=== PATIENT | female | born 1985 | race African-American/Black ===

== ENCOUNTER 2019-04-18 23:48 | Emergency (ER) | payer OTHER ==
[~2019-04-18] VITALS: Ht 170.2 cm; Wt 80.7 kg
[2019-04-19 00:05] VITALS: BP 121/84
[2019-04-19] MEDS ORDERED: HYDROCODON-ACE1 EA15 ORAL (00:19)
[2019-04-19] MEDS ORDERED: IBUPROFEN600 MG ORAL (00:19)
--- NOTE | 2019-04-19 00:19 | Emergency Room Report ---
History of Present Illness General Chief Complaint: Pain Source: Patient Present Illness HPI Is a 33-year-old female with no past medical history. She presents with chief complaint of neck pain. Onset for last 2 days. She woke up with the pain. Pain is to the left side. It is getting worse and worse. Is 8 out of 10. Worse with movement. Better with rest. Tylenol not helping. No incontinence of bowel or urine. No focal deficit. No fever. No trauma. Allergies: Coded Allergies: No Known Allergies (Unverified , 04/18/19) Patient History Past Medical History: see triage record, old chart reviewed Past Surgical History: none Pertinent Family History: none Social History: Denies: smoking Now: No Immunizations: other Reviewed Nursing Documentation: PMH: Agreed; PSxH: Agreed Nursing Documentation-PMH Past Medical History: No Stated History Review of Systems Eye: Denies: eye pain, blurred vision ENT: Denies: ear pain, nose congestion, throat swelling Respiratory: Denies: cough, shortness of breath Cardiovascular: Denies: chest pain, palpitations Gastrointestinal: Denies: abdominal pain, diarrhea, nausea, vomiting Musculoskeletal: Denies: back pain, joint pain Skin: Denies: rash Neurological: Denies: headache, numbness Endocrine: Denies: increased thirst, increased urine Hematologic/Lymphatic: Denies: easy bruising All Other Systems: negative except mentioned in HPI Physical Exam Vital Signs Date Time Temp Pulse Resp B/P (MAP) Pulse Ox O2 Delivery O2 Flow Rate FiO2 04/18/19 23:55 97.9 59 18 121/84 (96) 98 Room Air Vitals normal Sp02 EP Interpretation: reviewed, normal General Appearance: well appearing, no apparent distress, alert Head: normocephalic, atraumatic Eyes: bilateral eye PERRL, bilateral eye EOMI ENT: hearing grossly normal, normal pharynx Neck: full range of motion, supple, no meningismus, tender - Tenderness over the left trapezius muscle. Respiratory: chest non-tender, lungs clear, normal breath sounds Cardiovascular #1: regular rate, rhythm, no murmur Gastrointestinal: normal bowel sounds, non tender, no mass, no organomegaly, no bruit, non-distended Musculoskeletal: back normal, gait/station normal, normal range of motion Psychiatric: mood/affect normal Medical Decision Making Diagnostic Impression: Primary Impression: Neck pain, musculoskeletal ER Course Presents with soft tissue pain. No evidence of any fracture dislocation. No evidence of TIA or CVA. No evidence of cauda equina syndrome, spinal epidural abscess or neoplastic process. Will discharge home. Last Vital Signs Date Time Temp Pulse Resp B/P (MAP) Pulse Ox O2 Delivery O2 Flow Rate FiO2 04/18/19 23:55 97.9 59 18 121/84 (96) 98 Room Air Status: improved Disposition: HOME, SELF-CARE Condition: Stable Scripts Ibuprofen* (MOTRIN*) 600 Mg Tablet 600 MG ORAL THREE TIMES A DAY, #30 TAB 0 Refills Prov: Cody Mancilla MD 04/19/19 Hydrocodone/Acetaminophen 5-325* (HYDROCODONE/ACETAMINOPHEN 5-325*) 1 Each Tablet 1 TAB ORAL Q6H PRN for For Pain, #10 TAB 0 Refills Prov: Cody Mancilla MD 04/19/19 Additional Instructions: Follow-up with your doctor in 7 days. Return if symptoms worsen. Cody Mancilla MD Apr 19, 2019 00:19
[2019-04-19] MEDS: HYDROcodone/Acetamin 5/325 tab ORAL ONE (00:33)
[2019-04-19 00:40] VITALS: BP 121/84
== END 2019-04-19 00:40 | disposition home or self-care (01) ==
LOC: EMR 04-19 00:12
DX: M54.2 Cervicalgia (principal)
CPT/HCPCS: 99282